=== PATIENT | male | born 1960 | race African-American/Black ===

== ENCOUNTER 2017-09-15 03:59 | Inpatient (IN) | payer SELFPAY ==
[~2017-09-15] VITALS: Ht 185.4 cm; Wt 69.9 kg
[2017-09-15] VITALS (24 sets, daily range): BP systolic 140–207; BP diastolic 68–107; PULSE 73–150; RESP 16–24; TEMP 99.2–99.9; O2SAT 97–100
[2017-09-15] MEDS ORDERED: LORazepam 2 MG/ML VIAL ONE (04:13)
[2017-09-15] MEDS ORDERED: ETOMIDATE 40 MG/20 ML VIAL ONE (04:13)
[2017-09-15] MEDS ORDERED: PROPOFOL 1000 MG/100 ML INJ 100 ML ONE (04:22)
[2017-09-15] MEDS ORDERED: SODIUM CHLORIDE 0.9% FLUSH 10 ML FLUSH IVF PRN (04:30)
[2017-09-15] MEDS ORDERED: SODIUM CHLOR 0.9% 1000 ML INJ 1,000 ML IV ONE (04:30)
[2017-09-15] MEDS ORDERED: PROPOFOL 1000 MG/100 ML INJ 100 ML IV PRN ×2 (04:30→06:15)
[2017-09-15] MEDS ORDERED: MIDAZOLAM HCL 5 MG/ML VIAL (1 ML) ONE (04:33)
[2017-09-15] MEDS ORDERED: fentaNYL DRIP 250 ML ONE (04:44)
[2017-09-15] MEDS ORDERED: fentaNYL DRIP 250 ML IV PRN ×2 (04:45→06:15)
[2017-09-15] MEDS ORDERED: MIDAZOLAM HCL 5 MG/5 ML VIAL IV PUSH ONE (04:45)
[2017-09-15] MEDS ORDERED: ROCURONIUM INJ 50 MG/5 ML VIAL IV ONE (04:45)
--- NOTE | 2017-09-15 04:49 | PD ---
HPI Chief Complaint: seizure Time Seen by Provider: 04:09 Travel History International Travel<30 days: No Contact w/Intl Traveler<30days: No (travel history is unable to be obtained) History of Present Illness HPI The patient is a 51 something appearing male who presents to the [facility] emergency department with a history of seizure activity that began sometime prior to arrival. The patient was noted to have 5 seizures that were generalized clonic tonic according to ambulance services. The patient was with a female when this occurred. She reports that he does have a remote history of seizure activity. The patient on arrival is nonverbal. The patient has a GCS of 7. The patient's O2 saturation on room air on ambulance services arrival was in the low 90s. The patient is placed on a nonrebreather mask. Due to recurrent seizure activity the patient had IV access obtained by ambulance services was given Ativan 2 mg IV. The patient was noted to have a blood sugar of 99. The patient was agitated on arrival with sinus tachycardia rate of 150s. The patient was hypertensive with a systolic blood pressure initially on arrival of 170. The patient is noted to have an abrasion to the left cheek. No other review of systems is able to be obtained from the patient has the patient is nonverbal on arrival. The patient is moving all extremities equally with 5 over 5 strength in a nonpurposeful way. PFSH Past Medical History Narrative Medical The patient's past medical history is significant for reported history of seizure disorder. Past Surgical History Narrative Surgical The patient's surgical history is unable to be obtained. Social History Narrative Social History The patient's social history is unable to be obtained. Alcohol Use: No Tobacco Use: No Substance Use: No Allergies-Medications (Allergen,Severity, Reaction): Coded Allergies: No Known Allergies (Unverified , 09/15/17) Narrative Medication The patient's current medications are unable to be obtained. Review of Systems ROS Limitations: Clinical Condition, Altered Mental Status, Unresponsive, Poor Historian Neurologic: Positive: Change in Mentation, Seizures Physical Exam Narrative General: The patient is a well-developed well-nourished male, agitated on arrival, thrashing about the bed. Head and Neck exam: Head is normocephalic atraumatic. Eyes: The patient is uncooperative for formal extraocular motion testing. Pupils are equal round and reactive to light. Nose: Midline septum with pink mucous membranes Mouth: The patient has poor dentition throughout his mouth with multiple missing teeth. Moist mucus membranes. Posterior oropharynx is not erythematous. No tonsillar hypertrophy. Uvula midline. Airway patent. The patient is noted to have a contusion to the left side of his tongue. Neck: No palpable lymphadenopathy. No nuchal rigidity. No thyromegaly. Cardiovascular: Regular sounding tachycardia in the 150s without murmurs, gallops, or rubs. No pulse deficit to the extremities on simultaneous auscultation and palpation of his radial artery. Lungs: Clear to auscultation bilaterally. No wheezes, rhonchi, or rales. Abdomen: Soft, without tenderness to palpation in all 4 quadrants of the abdomen. No guarding, rebound, or rigidity. Normal bowel sounds are audible. Extremities: No clubbing, cyanosis, or edema. 2+ pulses in all 4 extremities. Back: No costovertebral angle tenderness to palpation. Neurologic Exam: The patient does not open his eyes to verbal or painful stimulation. The patient has nonpurposeful movements of his upper and lower extremities of 5 over 5 strength. The patient is nonverbal. GCS is 7. Skin Exam: No rash noted. Intact skin that is warm and dry. Data Data Last Documented VS Vital Signs Date Time Temp Pulse Resp B/P (MAP) Pulse Ox O2 Delivery O2 Flow Rate FiO2 09/15/17 05:30 118 16 150/87 (108) 100 Ventilator 60 09/15/17 04:05 99.9 Orders Orders Lorazepam Inj (Ativan Inj) (09/15/17 04:13) Etomidate Inj (Amidate Inj) (09/15/17 04:13) Propofol 1000 Mg/100 Ml Inj (Diprivan 10 (09/15/17 04:22) Electrocardiogram (09/15/17 04:25) Complete Blood Count With Diff (09/15/17 04:25) Comprehensive Metabolic Panel (09/15/17 04:25) Creatine Kinase (Cpk) (09/15/17 04:25) Ckmb (Isoenzyme) Profile (09/15/17 04:25) Troponin I (09/15/17 04:25) B-Type Natriuretic Peptide (09/15/17 04:25) Prothrombin Time / Inr (Pt) (09/15/17 04:25) Act Partial Throm Time (Ptt) (09/15/17 04:25) Lipase (09/15/17 04:25) Urinalysis - C+S If Indicated (09/15/17 04:25) Magnesium (Mg) (09/15/17 04:25) Thyroid Stimulating Hormone (09/15/17 04:25) Chest, Single Ap (09/15/17 04:25) Ct Brain W/O Iv Contrast(Rout) (09/15/17 04:25) Iv Access Insert/Monitor (09/15/17 04:25) Ecg Monitoring (09/15/17 04:25) Oximetry (09/15/17 04:25) Blood Glucose (09/15/17 04:) Urinary Catheter Insert/Apply (09/15/17 04:25) Isis-Gastric Tube Insert/Mon (09/15/17 04:25) Drug Screen, Random Urine (09/15/17 04:25) Alcohol (Ethanol) (09/15/17 04:25) Salicylates (Aspirin) (09/15/17 04:25) Tylenol (Acetaminophen) (09/15/17 04:25) Sodium Chlor 0.9% 1000 Ml Inj (Ns 1000 M (09/15/17 04:30) Ct Cerv Spine W/O Contrast (09/15/17 04:25) Ct Facial Bones W/O Iv Cont (09/15/17 04:25) Carbamazepine (Tegretol) (09/15/17 04:25) Valproic Acid (Depakene) (09/15/17 04:25) Phenytoin (Dilantin) (09/15/17 04:25) Phenobarbital (09/15/17 04:25) Arterial Blood Gas (Abg) (09/15/17 04:25) Sodium Chloride 0.9% Flush (Ns Flush) (09/15/17 04:30) Restraints Non-Violent ZUNILDA.Q3H (09/15/17 04:25) Propofol 1000 Mg/100 Ml Inj (Diprivan 10 (09/15/17 04:30) ^ Infusion (09/15/17 04:25) RASS (09/15/17 04:25) Neurological Rass Scale ZUNILDA.Q2H (09/15/17 04:25) Midazolam Inj (Versed Inj) (09/15/17 04:33) Midazolam Inj (Versed Inj) (09/15/17 04:45) Neurological Rass Scale Q30MX2,Q2HX4,Q4H (09/15/17 04:43) Fentanyl Inj (Fentanyl Inj) (09/15/17 04:45) Fentanyl Drip (Fentanyl Drip) (09/15/17 04:45) Rocuronium Inj (Zemuron Inj) (09/15/17 04:45) Fentanyl Drip (Fentanyl Drip) (09/15/17 04:44) Levetiracetam Inj (Keppra Inj) (09/15/17 05:00) CKMB (09/15/17 04:33) CKMB% (09/15/17 04:33) Admit Order (Ed Use Only) (09/15/17 05:49) Labs Laboratory Tests Test 09/15/17 04:33 09/15/17 05:29 White Blood Count 12.4 TH/MM3 Red Blood Count 3.84 MIL/MM3 Hemoglobin 12.4 GM/DL Hematocrit 38.4 % Mean Corpuscular Volume 100.1 FL Mean Corpuscular Hemoglobin 32.3 PG Mean Corpuscular Hemoglobin Concent 32.3 % Red Cell Distribution Width 13.6 % Platelet Count 67 TH/MM3 Mean Platelet Volume 9.6 FL Neutrophils (%) (Auto) 79.3 % Lymphocytes (%) (Auto) 9.9 % Monocytes (%) (Auto) 9.5 % Eosinophils (%) (Auto) 0.8 % Basophils (%) (Auto) 0.5 % Neutrophils # (Auto) 9.8 TH/MM3 Lymphocytes # (Auto) 1.2 TH/MM3 Monocytes # (Auto) 1.2 TH/MM3 Eosinophils # (Auto) 0.1 TH/MM3 Basophils # (Auto) 0.1 TH/MM3 CBC Comment AUTO DIFF Differential Comment AUTO DIFF CONFIRMED Platelet Estimate LOW Platelet Morphology Comment ENLARGED Prothrombin Time 11.2 SEC Prothromb Time International Ratio 1.1 RATIO Activated Partial Thromboplast Time 23.1 SEC Urine Color LIGHT-YELLOW Urine Turbidity HAZY Urine pH 5.5 Urine Specific Tippo 1.009 Urine Protein 30 mg/dL Urine Glucose (UA) NEG mg/dL Urine Ketones NEG mg/dL Urine Occult Blood MOD Urine Nitrite NEG Urine Bilirubin NEG Urine Urobilinogen LESS THAN 2.0 MG/DL Urine Leukocyte Esterase NEG Urine RBC LESS THAN 1 /hpf Urine Amorphous Sediment RARE Urine Bacteria OCC /hpf Urine Hyaline Casts 13 /lpf Urine Granular Casts 180 /lpf Urine Mucus FEW /lpf Microscopic Urinalysis Comment CULT NOT INDICATED Blood Urea Nitrogen 13 MG/DL Creatinine 1.72 MG/DL Random Glucose 149 MG/DL Total Protein 9.5 GM/DL Albumin 3.9 GM/DL Calcium Level 8.5 MG/DL Magnesium Level LESS THAN 0.3 MG/DL Alkaline Phosphatase 124 U/L Aspartate Amino Transf (AST/SGOT) 102 U/L Alanine Aminotransferase (ALT/SGPT) 8 U/L Total Bilirubin 0.4 MG/DL Sodium Level 137 MEQ/L Potassium Level 3.6 MEQ/L Chloride Level 101 MEQ/L Carbon Dioxide Level 12.0 MEQ/L Anion Gap 24 MEQ/L Estimat Glomerular Filtration Rate 34 ML/MIN Phosphorus Level 5.4 MG/DL Gamma Glutamyl Transpeptidase 375 U/L Total Creatine Kinase 1135 U/L Creatine Kinase MB 8.2 NG/ML Creatine Kinase MB % 0.7 % Troponin I LESS THAN 0.02 NG/ML B-Type Natriuretic Peptide 36 PG/ML Lipase 253 U/L Thyroid Stimulating Hormone 3rd Gen 2.430 uIU/ML Salicylates Level 2.0 MG/DL Urine Opiates Screen NEG Acetaminophen Level LESS THAN 2.0 MCG/ML Urine Barbiturates Screen NEG Phenytoin (Dilantin) Level LESS THAN 0.4 MCG/ML Valproic Acid (Depakene) Level LESS THAN 3 MCG/ML Carbamazepine (Tegretol) Level LESS THAN 0.5 MCG/ML Urine Amphetamines Screen NEG Phenobarbital Level LESS THAN 2.1 MCG/ML Urine Benzodiazepines Screen NEG Urine Cocaine Screen NEG Urine Cannabinoids Screen NEG Ethyl Alcohol Level 4 MG/DL Blood Gas Puncture Site RT RADIAL Blood Gas Patient Temperature 98.6 Blood Gas HCO3 20 mmol/L Blood Gas Base Excess -4.9 mmol/L Blood Gas Oxygen Saturation 98 % Arterial Blood pH 7.31 Arterial Blood Partial Pressure CO2 41 mmHg Arterial Blood Partial Pressure O2 252 mmHG Arterial Blood Oxygen Content 17.5 Vol % Arterial Blood Carboxyhemoglobin 0.7 % Arterial Blood Methemoglobin 0.7 % Blood Gas Hemoglobin 12.3 G/DL Oxygen Delivery Device VENTILATOR Blood Gas Ventilator Setting AC/16/600/PEEP5 Blood Gas Inspired Oxygen 100 % MDM Medical Decision Making Medical Screen Exam Complete: Yes Emergency Medical Condition: Yes Medical Record Reviewed: Yes Interpretation(s) Last Impressions Maxillofacial CT 09/15/17424 Signed Impressions: Service Date/Time: Friday, September 15, 2017 04:57 - CONCLUSION: No facial bone fractures seen. Michel Salas MD Head CT 09/15/17424 Signed Impressions: Service Date/Time: Friday, September 15, 2017 04:57 - CONCLUSION: 1. No acute findings in the brain. 2. 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 Michel Salas MD Chest X-Ray 09/15/17424 Signed Impressions: Service Date/Time: Friday, September 15, 2017 04:49 - CONCLUSION: ET tube in good position. Michel Salas MD Cervical Spine CT 09/15/17424 Signed Impressions: Service Date/Time: Friday, September 15, 2017 04:57 - CONCLUSION: No evidence of compression fracture. Mild retrolisthesis at C4-5 with associated moderate severity discogenic degenerative changes C4-C7. Michel Salas MD Differential Diagnosis Intracranial hemorrhage, versus status epilepticus, versus delirium tremens, versus encephalopathy Narrative Course During the course of the patients emergency department visit, the patient was placed on a awake overnight monitor with oximetry and frequent blood pressure monitoring. The patient had IV access obtained and blood work sent for analysis. An EKG was done that shows a sinus tachycardia rate of 121 post intubation, voltage criteria for LVH met, QRS duration is 89 ms, QTC 378 ms. The patient was initially provided an additional 2 mg of Ativan IV, however the patient continued to be agitated. The patient was prepped for RSI. The patient was intubated by me with an 8 size endotracheal tube. The patient was placed on propofol for sedation. In spite of maxing out his propofol for sedation the patient continued to be agitated. The patient was given Versed 2.5 mg IV. The patient continued to be agitated and was given fentanyl 50 g IV followed by a fentanyl drip. The patient was given Rocuronium 50 mg IV. Due to my concern for status epilepticus, the patient was loaded with Keppra 1 g IV. The patients laboratory studies were reviewed and remarkable for a white count of 12.4, hemoglobin 12.4, platelets 67 with 79.3 neutrophils, monocytes 9.5. CMP is remarkable for CO2 of 12, anion gap 24, creatinine 1.72, glucose 149, magnesium less than 0.3, AST 102, ALT 8, alkaline phosphatase 124, CPK 1135, MB percent 0.7 consistent with rhabdomyolysis, troponin I less than 0.02, lipase 253, TSH 2.43, BNP 36, PT 11.2, PTT 23.1. Antiepileptic levels were undetectable, alcohol 4, urine drug screen was negative, salicylate to, acetaminophen less than 2. Urinalysis showed moderate occult blood, however less than 1 RBC consistent with rhabdomyolysis Radiology studies were reviewed and remarkable for a CT scan of the brain that showed no acute findings. Prior aneurysm clip right supraclinoid region with surrounding encephalomalacia. CT scan of the facial bones showed no acute abnormality. CT scan of the C-spine showed degenerative changes, no other acute abnormality. Chest x-ray showed no acute cardiopulmonary disease, endotracheal tube in good position. The patients results were discussed with the patient, including the plan of care. I explained that further testing and/ or monitoring is indicated based on the patients history, examination, and/ or laboratory findings. Therefore, I recommended admission for additional evaluation. The patient expressed understanding and was agreeable with this plan. The patient was admitted to the hospital in guarded condition and sent to a bed under the care of the hand box folder service. Critical Care Narrative Aggregate critical care time was 37 minutes. Time to perform other separately billable procedures was not included in the critical care time. My time did not include minutes spent treating any other patients simultaneously or on activities that did not directly contribute to the patient's treatment. The services I provided to this patient were to treat and/or prevent clinically significant deterioration that could result in: Hypoxic brain injury, versus respiratory failure, versus cardiovascular collapse, versus progressive brain injury related to status epilepticus I provided critical care services requiring my management, as noted below: Chart data review, documentation time, medication orders and management, vital sign assessments/reviewing monitor data, ordering and reviewing lab tests, ordering and interpreting/reviewing x-rays and diagnostic studies, care of the patient and discussion of the patient with the admitting physicians. Procedures Procedure Narrative The patient was put in optimal position for the procedure. Rapid sequence intubation was initiated by me using 20 milligrams of etomidate IV and 100 milligrams of succinylcholine IV. The patient was intubated with a 8 cuffed endotracheal tube. Tube placement was confirmed by visualization of the tube and balloon passing through the cords, capnometry and subsequent chest x-ray. Breath sounds were equal and well aerated bilaterally postintubation. No breath sounds over stomach. Patient tolerated procedure well. Physician Communication Physician Communication The patient's case including history, pertinent physical examination findings, and laboratory studies were discussed with Dr. Adame, and then Dr. Garza. It was agreed that the patient would be admitted to the hand box folder's service. Diagnosis Primary Impression: Status epilepticus Additional Impression: Altered mental status Qualified Codes: R41.0 - Disorientation, unspecified Admitting Information Admitting Physician Requests: Admit Daphne Lechuga MD Sep 15, 2017 04:49
[2017-09-15 05:00] LABS: AUTOMATED NEUTROPHIL # 9.8 TH/MM3 (1.8-7.7); BASOPHIL # 0.1 TH/MM3 (0-0.2); BASOPHIL % 0.5 % (0.0-2.0); EOSINOPHIL # 0.1 TH/MM3 (0-0.4); EOSINOPHIL % 0.8 % (0.0-4.0); HEMATOCRIT 38.4 % (39.0-51.0); LYMPH % 9.9 % (9.0-44.0); LYMPHOCYTE # 1.2 TH/MM3 (1.0-4.8); MEAN CELL VOLUME 100.1 FL (80.0-100.0); MEAN CORPUSCULAR HEMOGLOBIN 32.3 PG (27.0-34.0); MEAN CORPUSCULAR HGB CONC 32.3 % (32.0-36.0); MONO % 9.5 % (0.0-8.0); NEUT % 79.3 % (16.0-70.0); PLATELET COUNT 67 TH/MM3 (150-450); RED BLOOD COUNT 3.84 MIL/MM3 (4.50-5.90); RED CELL DISTRIBUTION WIDTH 13.6 % (11.6-17.2); WHITE BLOOD COUNT 12.4 TH/MM3 (4.0-11.0)
[2017-09-15] MEDS ORDERED: levETIRAcetam INJ 100 ML IV ONE (05:00)
--- NOTE | 2017-09-15 05:02 | RADRPT ---
EXAM DATE/TIME: 09/15/2017 04:49 [facility] COMPARISON: No previous studies available for comparison. INDICATIONS : Post intubation. MEDICAL HISTORY : None. SURGICAL HISTORY : None. ENCOUNTER: Initial ACUITY: 1 day PAIN SCORE: 0/10 LOCATION: Bilateral chest FINDINGS: Endotracheal tube tip well above the renato. Gastric tube tip and side-port project within the stoma ch. The lungs are symmetrically aerated and clear. The heart is normal size. CONCLUSION: ET tube in good position. Michel Salas MD on September 15, 2017 at 5:00 Board Certified Radiologist. This report was verified electronically.
[2017-09-15 05:05] LABS: HEMO FLAGS AUTO DIFF
[2017-09-15 05:06] LABS: BACTERIA, URINE OCC /hpf; BLOOD, URINE MOD (NEG); COMMENT (UR) CULT NOT INDICATED; CULTURE IF INDICATED CULT NOT INDICATED; GLUCOSE,URINE NEG (NEG); GRANULAR CAST, URINE 180 /lpf; HYALINE CAST, URINE 13 /lpf (RARE); KETONE, URINE NEG (NEG); MUCUS URINE FEW /lpf (OCC); NITRITE,URINE NEG (NEG); PH, URINE 5.5 (5.0-8.5); URINE COLOR LIGHT-YELLOW (YELLW/STRAW)
[2017-09-15 05:10] LABS: ANION GAP 24 MEQ/L (5-15); AST (GOT) 102 U/L (15-37); BLOOD UREA NITROGEN 13 MG/DL (7-18); CHLORIDE 101 MEQ/L (98-107); GLOMERULAR FILTRATION RATE 34 ML/MIN (>89); MAGNESIUM LESS THAN 0.3 MG/DL (1.5-2.5); POTASSIUM 3.6 MEQ/L (3.5-5.1); SODIUM (NA) 137 MEQ/L (136-145)
[2017-09-15 05:11] LABS: APTT (PATIENT) 23.1 SEC (24.3-30.1); INTERNATIONAL NORMALIZED RATIO 1.1 RATIO; PROTHROMBIN TIME - PATIENT 11.2 SEC (9.8-11.6)
--- NOTE | 2017-09-15 05:17 | RADRPT ---
EXAM DATE/TIME: 09/15/2017 04:57 [facility] COMPARISON: No previous studies available for comparison. INDICATIONS : Trauma; seizure. RADIATION DOSE: 37.65 CTDIvol (mGy) MEDICAL HISTORY : Non-responsive. SURGICAL HISTORY : Non-responsive. ENCOUNTER: Initial ACUITY: 1 day PAIN SCALE: Non-responsive LOCATION: cranial TECHNIQUE: Multiple contiguous axial images were obtained of the head. Using automated exposure control and adj ustment of the mA and/or kV according to patient size, radiation dose was kept as low as reasonably a chievable to obtain optimal diagnostic quality images. DICOM format image data is available electro nically for review and comparison. FINDINGS: CEREBRUM: Right supraclinoid aneurysm clip causes streak artifact in the adjacent region. There is decreased a ttenuation in the right frontal orbital region.. The ventricles are symmetric. No midline shift or evidence of acute blood products. No extra-axial fluid collections. POSTERIOR FOSSA: The cerebellum and brainstem are intact. The 4th ventricle is midline. The cerebellopontine angle i s unremarkable. EXTRACRANIAL: The visualized portion of the orbits is intact. SKULL: The calvaria is intact. No evidence of skull fracture. CONCLUSION: 1. No acute findings in the brain. 2. 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 Michel Salas MD on September 15, 2017 at 5:10 Board Certified Radiologist. This report was verified electronically.
--- NOTE | 2017-09-15 05:19 | RADRPT ---
EXAM DATE/TIME: 09/15/2017 04:57 [facility] COMPARISON: No previous studies available for comparison. INDICATIONS : Trauma; seizure. RADIATION DOSE: 45.49 CTDIvol (mGy) MEDICAL HISTORY : Non-responsive. SURGICAL HISTORY : Non-responsive. ENCOUNTER: Initial ACUITY: 1 day PAIN SCORE: Non-responsive LOCATION: Bilateral facial TECHNIQUE: Volumetric scanning of the facial bones was performed. Using automated exposure control and adjustme nt of the mA and/or kV according to patient size, radiation dose was kept as low as reasonably achiev able to obtain optimal diagnostic quality images. DICOM format image data is available electronicall y for review and comparison. FINDINGS: The frontal, maxillary, mandible, zygomatic arch, nasal bone, and orbital structures are intact. No fracture seen. Aneurysm clip in the right supraclinoid region. Bony orbits is grossly intact. Ther e is opacification of anterior and mid ethmoid air cells and non-aerated without fluid tracks in both maxillary sinuses. Focal mucosal thickening in the inferior right maxillary sinus the 7 mm. CONCLUSION: No facial bone fractures seen. Michel Salas MD on September 15, 2017 at 5:16 Board Certified Radiologist. This report was verified electronically.
[2017-09-15 05:21] LABS: ALCOHOL 4 MG/DL (0-5)
--- NOTE | 2017-09-15 05:21 | RADRPT ---
EXAM DATE/TIME: 09/15/2017 04:57 [facility] COMPARISON: No previous studies available for comparison. INDICATIONS : Trauma; seizure. RADIATION DOSE: 21.47 CTDIvol (mGy) MEDICAL HISTORY : Non-responsive. SURGICAL HISTORY : Non-responsive. ENCOUNTER: Initial ACUITY: 1 day PAIN SCALE: Non-responsive LOCATION: Bilateral neck TECHNIQUE: Volumetric scanning of the cervical spine was performed. Multiplanar reconstructions in the sagittal, coronal and oblique axial planes were performed. Using automated exposure control and adjustment o f the mA and/or kV according to patient size, radiation dose was kept as low as reasonably achievable to obtain optimal diagnostic quality images. DICOM format image data is available electronically f or review and comparison. FINDINGS: VERTEBRAE: There is straightening of the upper cervical lordosis. Minimal retrolisthesis of C4 with respect to C5. Associated discogenic degenerative changes with anterior and posterior osteophytes at C4-5 and C 6-7 and non-bridging anterior paravertebral ossification at C5-6. The posterior elements are in norm al alignment without evidence of locked or perched facets. The atlantoaxial articulation and spinous processes are intact. C2-C3: No fracture seen. The bony neural foramina are patent. C3-C4: No fracture seen. The bony neural foramina are patent. C4-C5: No fracture seen. Moderate left-sided bony foraminal stenosis. C5-C6: No fracture seen. The bony neural foramina are patent. C6-C7: No fracture seen. The bony neural foramina are patent. C7-T1: No fracture seen. The bony neural foramina are patent. CONCLUSION: No evidence of compression fracture. Mild retrolisthesis at C4-5 with associated moderate severity d iscogenic degenerative changes C4-C7. Michel Salas MD on September 15, 2017 at 5:17 Board Certified Radiologist. This report was verified electronically.
[2017-09-15 05:24] LABS: ALKALINE PHOSPHATASE 124 U/L (45-117); ALT (GPT) 8 U/L (12-78); CREATINE KINASE 1135 U/L (39-308); PHENOBARBITAL LESS THAN 2.1 MCG/ML (15.0-40.0); TOTAL BILIRUBIN ADULT 0.4 MG/DL (0.2-1.0)
[2017-09-15 05:25] LABS: ACETAMINOPHEN LESS THAN 2.0 MCG/ML (10.0-30.0)
[2017-09-15 05:29] LABS: PLATELET ESTIMATE SMEAR LOW (NORMAL); PLATELET MORPHOLOGY ENLARGED (NORMAL); SCAN/DIFF AUTO DIFF CONFIRMED
[2017-09-15 05:37] LABS: CKMB 8.2 NG/ML (0.5-3.6)
[2017-09-15 05:46] LABS: BLOOD GAS BASE EXCESS -4.9 mmol/L (-2-2); BLOOD GAS CARBOXYHEMOGLOBIN 0.7 % (0-4); BLOOD GAS HCO3 20 mmol/L (22-26); BLOOD GAS METHEMOGLOBIN 0.7 % (0-2); BLOOD GAS O2 HGB SATURATION 98 % (90-100); BLOOD GAS OXYGEN CONTENT 17.5 Vol % (12.0-20.0); BLOOD GAS PCO2 41 mmHg (38-42); BLOOD GAS PO2 252 mmHG (61-120); BLOOD GAS TOTAL HGB 12.3 G/DL (12.0-16.0); CRITICAL VALUE NO; FIO2 100 %; OXYGEN DEVICE VENTILATOR; TEMP CORR TO 98.6; VENT SETTINGS AC/16/600/PEEP5
[2017-09-15 05:47] LABS: DRAW SITE RT RADIAL; NUMBER OF ARTERIAL PUNCTURES 1; STAT YES; ULNAR PULSE PRESENT
[2017-09-15] MEDS ORDERED: LABETALOL HCL 100 MG/20 ML VIAL IV PUSH PRN (06:15)
[2017-09-15] MEDS ORDERED: ONDANSETRON HCL 4 MG/2 ML VIAL IV PUSH PRN (06:15)
[2017-09-15] MEDS ORDERED: MISCELLANEOUS NURSING INFORMATION XX SCH (06:15)
[2017-09-15] MEDS ORDERED: MAGNESIUM HYDROXIDE SUSP 30 ML CUP PO PRN (06:15)
[2017-09-15] MEDS ORDERED: POTASSIUM CHLOR 40 MEQ PREMIX 100 ML IV PRN ×2 (06:15)
[2017-09-15] MEDS ORDERED: DEXTROSE 50% IN WATER 50 ML VIAL(D50) IV PUSH PRN (06:15)
[2017-09-15] MEDS ORDERED: MAGNESIUM SULFATE INJ 4 GM in SODIUM CHLORIDE 0.9% INJ 92 ML IV PRN (06:15)
[2017-09-15] MEDS ORDERED: POTASSIUM PHOSPHATE MONOBASIC 500 MG TAB PO/TUBE PRN (06:15)
[2017-09-15] MEDS ORDERED: CHLORHEXIDINE GLUCONATE 2 % 1 PACK (2 CLOTHS) TOP PRN (06:15)
[2017-09-15] MEDS ORDERED: hydrALAZINE HCL 20 MG/ML VIAL IV PUSH PRN (06:15)
[2017-09-15] MEDS ORDERED: SODIUM PHOSPHATE INJ 30 MMOL in SODIUM CHLOR 0.9% 250 ML INJ 240 ML IV PRN (06:15)
[2017-09-15] MEDS ORDERED: RESP: ALBUTEROL 2.5 MG/IPRATROPIUM 0.5 MG NEB (PRN) INH (06:15)
[2017-09-15] MEDS ORDERED: SUCCINYLCHOLINE CHLORIDE 100 MG/5 ML SYRINGE IV PUSH ONE (06:15)
[2017-09-15] MEDS ORDERED: MAGNESIUM SULFATE 4 GM PREMIX 150 ML IV ONE (06:15)
[2017-09-15] MEDS ORDERED: MAGNESIUM SULFATE INJ 2 GM in SODIUM CHLORIDE 0.9% INJ 96 ML IV PRN (06:15)
[2017-09-15] MEDS ORDERED: MULTIVITAMIN INJ 10 ML, THIAMINE INJ 100 MG, FOLIC ACID INJ 1 MG in SODIUM CHLOR 0.45% ... IV ONE (06:15)
[2017-09-15] MEDS ORDERED: POTASSIUM PHOSPHATE INJ 30 MMOL in SODIUM CHLOR 0.9% 250 ML INJ 250 ML IV PRN (06:15)
[2017-09-15] MEDS ORDERED: POTASSIUM PHOSPHATE MONOBASIC 500 MG TAB PO PRN (06:15)
[2017-09-15] MEDS ORDERED: POTASSIUM CHLOR 20 MEQ PREMIX 100 ML IV PRN ×2 (06:15)
[2017-09-15] MEDS ORDERED: MAGNESIUM OXIDE 400 MG TAB PO PRN (06:15)
--- NOTE | 2017-09-15 06:36 | HHI.HP ---
HPI Service Critical Care Medicine Primary Care Physician Unknown Admission Diagnosis Status epilepticus, rhabdomyolysis Diagnosis: Chief Complaint: status epilepticus Travel History International Travel<30 Days: No Contact w/Intl Traveler <30 Da: No Traveled to Known Affected Are: No History of Present Illness This is a middle-aged appearing male who presents to [facility] by EMS for recurrent seizure like activity. per EMS report, he was with a female who stated he may have a ?history of seizures? He had 5 witnessed seizure-like episodes which appeared tonic-clonic in nature. On arrival to the ED, he was hypoxic and not protecting his airway on a non-rebreather mask. He was intubated in the ER. He was given ativan IV and 1gm keppra iv. CT brain was without evidence of acute changes. Patient was initially tachycardic and hypertensive. laboratory data is significant for thrombocytopenia to 67k, bicarb 12, Cr 1.7, CK 1135, AST/ALT 102/8, and an undetectable serum magnesium level. The patient is intubated, and no additional information is available from him. Review of Systems ROS Limitations: Clinical Condition, Intubated, Altered Mental Status, Unresponsive Past Family Social History Allergies: Coded Allergies: No Known Allergies (Unverified , 09/15/17) Past Medical History unknown and unobtainable secondary to the clinical condition of the patient. per bystander report, the patient may have a history of prior seizures. Past Surgical History unknown and unobtainable secondary to the clinical condition of the patient. Reported Medications unknown and unobtainable secondary to the clinical condition of the patient. Active Ordered Medications See MAR Family History unknown and unobtainable secondary to the clinical condition of the patient. Social History unknown and unobtainable secondary to the clinical condition of the patient. Physical Exam Vital Signs Vital Signs Date Time Temp Pulse Resp B/P (MAP) Pulse Ox O2 Delivery O2 Flow Rate FiO2 09/15/17 04:50 100 100 09/15/17 04:30 100 100 09/15/17 04:05 99.9 150 24 170/78 (108) Physical Exam GENERAL: Middle-aged appearing male, lying in bed, intubated, sedated HEENT: Normocephalic. Atraumatic. Pupils are 2 mm bilaterally, equal and round. They're disconjugate at this time. Mucous membranes are moist NECK: Trachea is midline. There is no JVD. CHEST: Equal chest rise. PRVC. 60% FiO2. PEEP of 5. SPO2 96% CARDIOVASCULAR: Tachycardic rate, regular rhythm. Appears sinus on the monitor. Hypertensive in the 140s systolic ABDOMEN: Soft, nontender, nondistended. No guarding. No hepatomegaly. MUSCULOSKELETAL: Pulses 2+. No peripheral edema. NEUROLOGICAL: RASS -4. Moves all extremities. Weakly withdrawals to pain in all 4 extremities. Does not follow commands. Pupils as above. Has a cough. Laboratory Laboratory Tests Test 09/15/17 04:33 09/15/17 05:29 White Blood Count 12.4 Red Blood Count 3.84 Hemoglobin 12.4 Hematocrit 38.4 Mean Corpuscular Volume 100.1 Mean Corpuscular Hemoglobin 32.3 Mean Corpuscular Hemoglobin Concent 32.3 Red Cell Distribution Width 13.6 Platelet Count 67 Mean Platelet Volume 9.6 Neutrophils (%) (Auto) 79.3 Lymphocytes (%) (Auto) 9.9 Monocytes (%) (Auto) 9.5 Eosinophils (%) (Auto) 0.8 Basophils (%) (Auto) 0.5 Neutrophils # (Auto) 9.8 Lymphocytes # (Auto) 1.2 Monocytes # (Auto) 1.2 Eosinophils # (Auto) 0.1 Basophils # (Auto) 0.1 CBC Comment AUTO DIFF Differential Comment AUTO DIFF CONFIRMED Platelet Estimate LOW Platelet Morphology Comment ENLARGED Prothrombin Time 11.2 Prothromb Time International Ratio 1.1 Activated Partial Thromboplast Time 23.1 Urine Color LIGHT-YELLOW Urine Turbidity HAZY Urine pH 5.5 Urine Specific Kenner 1.009 Urine Protein 30 Urine Glucose (UA) NEG Urine Ketones NEG Urine Occult Blood MOD Urine Nitrite NEG Urine Bilirubin NEG Urine Urobilinogen LESS THAN 2.0 Urine Leukocyte Esterase NEG Urine RBC LESS THAN 1 Urine Amorphous Sediment RARE Urine Bacteria OCC Urine Hyaline Casts 13 Urine Granular Casts 180 Urine Mucus FEW Microscopic Urinalysis Comment CULT NOT INDICATED Blood Urea Nitrogen 13 Creatinine 1.72 Random Glucose 149 Total Protein 9.5 Albumin 3.9 Calcium Level 8.5 Magnesium Level LESS THAN 0.3 Alkaline Phosphatase 124 Aspartate Amino Transf (AST/SGOT) 102 Alanine Aminotransferase (ALT/SGPT) 8 Total Bilirubin 0.4 Sodium Level 137 Potassium Level 3.6 Chloride Level 101 Carbon Dioxide Level 12.0 Anion Gap 24 Estimat Glomerular Filtration Rate 34 Total Creatine Kinase 1135 Creatine Kinase MB 8.2 Creatine Kinase MB % 0.7 Troponin I LESS THAN 0.02 B-Type Natriuretic Peptide 36 Lipase 253 Thyroid Stimulating Hormone 3rd Gen 2.430 Salicylates Level 2.0 Acetaminophen Level LESS THAN 2.0 Phenytoin (Dilantin) Level LESS THAN 0.4 Valproic Acid (Depakene) Level LESS THAN 3 Carbamazepine (Tegretol) Level LESS THAN 0.5 Phenobarbital Level LESS THAN 2.1 Ethyl Alcohol Level 4 Blood Gas Puncture Site RT RADIAL Blood Gas Patient Temperature 98.6 Blood Gas HCO3 20 Blood Gas Base Excess -4.9 Blood Gas Oxygen Saturation 98 Arterial Blood pH 7.31 Arterial Blood Partial Pressure CO2 41 Arterial Blood Partial Pressure O2 252 Arterial Blood Oxygen Content 17.5 Arterial Blood Carboxyhemoglobin 0.7 Arterial Blood Methemoglobin 0.7 Blood Gas Hemoglobin 12.3 Oxygen Delivery Device VENTILATOR Blood Gas Ventilator Setting AC/16/600/PEEP5 Blood Gas Inspired Oxygen 100 Result Diagram: 09/15/1743209/15/17432 Imaging Last Impressions Maxillofacial CT 09/15/17424 Signed Impressions: Service Date/Time: Friday, September 15, 2017 04:57 - CONCLUSION: No facial bone fractures seen. Michel Salas MD Head CT 09/15/17424 Signed Impressions: Service Date/Time: Friday, September 15, 2017 04:57 - CONCLUSION: 1. No acute findings in the brain. 2. 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 Michel Salas MD Chest X-Ray 09/15/17424 Signed Impressions: Service Date/Time: Friday, September 15, 2017 04:49 - CONCLUSION: ET tube in good position. Michel Salas MD Cervical Spine CT 09/15/17424 Signed Impressions: Service Date/Time: Friday, September 15, 2017 04:57 - CONCLUSION: No evidence of compression fracture. Mild retrolisthesis at C4-5 with associated moderate severity discogenic degenerative changes C4-C7. Michel Salas MD Caprini VTE Risk Assessment Caprini VTE Risk Assessment: Mod/High Risk (score >= 2) Caprini Risk Assessment Model Point Value = 1 Point Value = 2 Point Value = 3 Point Value = 5 Age 41-60 Minor surgery BMI > 25 kg/m2 Swollen legs Varicose veins or History of unexplained or recurrent spontaneous Oral contraceptives or hormone replacement Sepsis (< 1 month) Serious lung disease, including pneumonia (< 1 month) Abnormal pulmonary function Acute myocardial infarction Congestive heart failure (< 1 month) History of inflammatory bowel disease Medical patient at bed rest Age 61-74 Arthroscopic surgery Major open surgery (> 45 min) Laparoscopic surgery (> 45 min) Malignancy Confined to bed (> 72 hours) Immobilizing plaster cast Central venous access Age >= 75 History of VTE Family history of VTE Factor V Leiden Prothrombin [id number] Lupus anticoagulant Anticardiolipin antibodies Elevated serum homocysteine Heparin-induced thrombocytopenia Other congenital or acquired thrombophilia Stroke (< 1 month) Elective arthroplasty Hip, pelvis, or leg fracture Acute spinal cord injury (< 1 month) Prophylaxis Regimen Total Risk Factor Score Risk Level Prophylaxis Regimen 0-1 Low Early ambulation 2 Moderate Order ONE of the following: *Sequential Compression Device (SCD) *Heparin 5000 units SQ BID 3-4 Higher Order ONE of the following medications: *Heparin 5000 units SQ TID *Enoxaparin/Lovenox 40 mg SQ daily (WT < 150 kg, CrCl > 30 mL/min) *Enoxaparin/Lovenox 30 mg SQ daily (WT < 150 kg, CrCl > 10-29 mL/min) *Enoxaparin/Lovenox 30 mg SQ BID (WT < 150 kg, CrCl > 30 mL/min) AND/OR *Sequential Compression Device (SCD) 5 or more Highest Order ONE of the following medications: *Heparin 5000 units SQ TID (Preferred with Epidurals) *Enoxaparin/Lovenox 40 mg SQ daily (WT < 150 kg, CrCl > 30 mL/min) *Enoxaparin/Lovenox 30 mg SQ daily (WT < 150 kg, CrCl > 10-29 mL/min) *Enoxaparin/Lovenox 30 mg SQ BID (WT < 150 kg, CrCl > 30 mL/min) AND *Sequential Compression Device (SCD) Assessment and Plan Assessment and Plan Assessment: This is a middle-aged male who presented in status epilepticus with an unknown history (?history of seizures). He has an undetectable magnesium level, and severe hypomagnesemia can cause seizures. In addition, he has LFTs that could represent chronic alcoholic cirrhosis, and a low etoh serum level, and alcohol withdraw seizures/delirium tremens could cause seizures as well. Further, he has undetectable levels of multiple anti-epileptics, so if he did have a seizure condition, he may have medication noncompliance. Finally, [employer] infection is less likely, though could be in the differential diagnosis. Thrombocytopenia prevents emergent LP currently. Will obtain initial information , replace magnesium, obtain EEG. If fevers persist after seizures stop, would consider empiric coverage for [employer] infections and LP may be warranted at that time. will hold pharmacologic DVT prophylaxis today in case LP is needed urgently. Remains very critically ill with life-threatening status epilepticus and hypomagnesemia. Plan by systems: Neurologic: Status Epilepticus Metabolic Encephalopathy frequent neuro checks EEG may need MRI when additional information is resulted may need LP and [employer] coverage for infections if fevers persist fentanyl and propofol for RASS goal -2 keppra 1gm iv given in ED. start 500mg iv q12h. Respiratory: Acute hypoxic and hypercarbic respiratory failure vent bundle hob at 30 degrees nebs wean fio2 for goal spo2 > 90% no weaning of mechanical ventilation until mental status improves. Cardiovascular: Hypertension likely secondary to seizures labetalol and hydralazine prn for goal sbp < 160 Renal: Acute kidney injury Rhabdomyolysis serial CK LR @ 150 cc/hr CR likely secondary to seizures and rhabdo trend on daily bmp place whitt, q1h uop -- Strict I/Os FEN/GI: Severe life-threatening hypomagnesemia Anion-gap metabolic acidosis high suspicion for poor nutrition from substance abuse send phos level now start iv thiamine iv multivitamin 4gm mgso4 STAT, then recheck potassium. would repeat 4gm iv mgso4 serially until mag level gets > 1, then target 2.5: may be total body magnesium deplete. daily bmp Jevity 1.5, goal 60. nutrition recs. acidosis likely secondary to seizures. ivf as above. Heme/ID: Thrombocytopenia unclear etiology, ?cirrhosis. no active bleeding. will not transfuse at this time. trend on daily cbc. no current infectious etiology suspected unless continues to spike fevers and [employer] infection is higher on the differential. Endocrine: Hyperglycemia of Critical Illness ssi, med scale, q6h -- SSI Prophylaxis: GI Prophylaxis pepcid iv DVT Prophylaxis -- SCDs hold pharmacologic dvt prophylaxis until no need for LP, then will start. Lines: piv's whitt Dispo: admit to ICU. very critically ill. This patient remains critically ill with one or more organ systems which are or may become a threat to life. I have spent in excess of 62 minutes discontinuously in the care and management of this patient. This time is exclusive of procedures, and includes, but is not limited to, evaluation of the patient, review of the medical record, discussions with family, consultants, nursing staff, or respiratory therapy, and documentation in the medical record. Code Status Full Code Ebenezer Garza MD Sep 15, 2017 06:36
[2017-09-15] MEDS: RESP: ALBUTEROL 2.5 MG/IPRATROPIUM 0.5 MG NEB (SCH) INH ×3 (08:10→20:23)
[2017-09-15] MEDS: LACTATED RINGER'S 1000 ML INJ 1,000 ML IV SCH ×2 (08:18→13:23)
[2017-09-15] MEDS: CHLORHEXIDINE 0.12% (ORAL KIT) 15 ML CUP MT SCH ×2 (08:19→21:00)
[2017-09-15] MEDS: levETIRAcetam INJ 500 MG in SODIUM CHLORIDE 0.9% INJ 100 ML IV SCH ×2 (08:51→20:42)
[2017-09-15] MEDS: FAMOTIDINE 20 MG/2 ML VIAL IV PUSH SCH (08:52)
[2017-09-15] MEDS: DOCUSATE SODIUM 50 MG/SENNA 8.6 MG TAB PO SCH ×2 (08:52→20:42)
[2017-09-15 10:28] LABS: CKMB 12.5 NG/ML (0.5-3.6)
[2017-09-15] MEDS: INSULIN NovoLIN REGULAR SUPPLEMENTAL SCALE SQ SCH ×3 (12:00→23:13)
--- NOTE | 2017-09-15 12:42 | EKG ---
Date Performed: 09/15/2017 Time Performed: 04:34:04 PTAGE: 89 years EKG: SINUS TACHYCARDIA VOLTAGE CRITERIA FOR LVH Nondiagnostic Q waves in the inferior and latera l leads. ABNORMAL ECG NO PREVIOUS TRACING DOCTOR: Ran Lechuga Interpretating Date/Time 09/15/2017 12:41:26
--- NOTE | 2017-09-15 17:31 | MB ---
cc: RHONDA MCCONNELL M.D. DATE OF CONSULTATION 09/15/2017 No date of HISTORY OF THE PRESENT ILLNESS This is a middle-aged man, he states he is 57 years old and he states that his last name is Chino, first name Tariq, lives in [place] who came to [facility] by EMS for recurrent seizure like activity. He was apparently with somebody, had five witnessed seizures, tonoclonic. On arrival he was hypoxic not protecting his airway on a non-rebreather. He was intubated and given Ativan as well as a gram of Keppra. CT was performed of the brain, was unremarkable. He is currently extubated on a non-rebreather, right now he is able to mumble words. He told me his name and his age and that he lives in [place]. He states he has had seizures since he was at least 12 years old. He cannot tell me what medicines he is taking. PHYSICAL EXAMINATION VITAL SIGNS: On exam his vital temperature had been normal on admission, a little elevated at 99.5. Pulse 88, respiratory rate right now is 16. His blood pressure is 145/80. He is sating at 99% on 3 liters. NEUROLOGIC: His pupils are reactive. His face is symmetrical. His speech is hypophonic but he does not sound dysarthric. Motor oliveira he moves everything. Gait is withheld. LABORATORY DATA White count 12.4, MCV 100.1, platelets 67,000. Coag panel PTT 23.1. Chemistries, AST 102, ALT 8, alk phos 124. CK 1135. Creatinine 1.72 with a GFR 34. Magnesium currently 4.2, phosphorus 5.4. CK now this morning was 2476, pending repeat. Toxicology was basically unremarkable. Ethanol level was 4. IMAGING STUDIES CT head no acute findings. Evidence of a prior aneurysm clip right supraclinoid region with surrounding encephalomalacia. IMPRESSION The patient states he is 57-year-old man that has a history of epilepsy, may be multifactorial. 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 He had a negative phenobarbital level, Tegretol level, Depakote level, Dilantin level, so it seems he is noncompliant with medication. I would recommend monitoring closely for any alcohol withdrawal. Continue thiamine, folic acid, multivitamins. Also benzodiazepines should be continued for any withdrawal from alcohol. He was started on Keppra. Will continue with the current Keppra 500 mg b.i.d. dosing. Hopefully case management can assist in making sure that he gets his medication. Continue seizure precautions. I will go ahead and order an EEG and if stable in the next 24 to 48 hours hopefully discharge planning. MD MAGDY Martinez/KK /4:30 PM /5:10 PM
--- NOTE | 2017-09-15 20:31 | MG ---
cc: MELISSA GABRIEL MD Lab No: Date: 09/15/17 Age: Sex: M Race: An EEG was obtained on this Alfie Yeager patient being evaluated for subarachnoid hemorrhage, encephalomalacia, seizures. The patient is described as intubated with poor responses to somewhat of sensory stimuli. This study is actually showing a lot of alpha rhythms that seem to be poorly reactive, perhaps more so in the central frontal head regions. There are beta rhythms diffusely and there is some theta activity bilaterally. Photic stimulation disclosed no significant change. INTERPRETATION Abnormal EEG because of poorly reactive background rhythms consisting of a lot of alpha activity. There is some generalized slowing. The findings suggest a mild diffuse disturbance of cerebral function. The alpha activity is somewhat unusual, but wonder if this is a representation of a poorly reactive/alpha coma background activity. No epileptiform, no weak ictal features present. Melissa Gabriel MD [facility] /8:10 PM /8:26 PM
[2017-09-15] MEDS: SODIUM BICARBONATE 8.4% INJ 150 MEQ in DEXTROSE 5% IN WATE 1000ML INJ 1,000 ML IV SCH ×2 (23:17)
[2017-09-15 23:47] LABS: CKMB 17.2 NG/ML (0.5-3.6)
[2017-09-16] VITALS (10 sets, daily range): BP systolic 105–171; BP diastolic 59–95; PULSE 65–87; RESP 16–20; TEMP 98.6–99.4; O2SAT 94–97
[2017-09-16] MEDS: CHLORHEXIDINE GLUCONATE 2 % 1 PACK (2 CLOTHS) TOP SCH (01:39)
[2017-09-16] MEDS: THIAMINE INJ 100 MG in SODIUM CHLORIDE 0.9% INJ 100 ML IV SCH (02:05)
[2017-09-16 04:05] LABS: AUTOMATED NEUTROPHIL # 8.2 TH/MM3 (1.8-7.7); BASOPHIL # 0.1 TH/MM3 (0-0.2); BASOPHIL % 0.6 % (0.0-2.0); EOSINOPHIL # 0.1 TH/MM3 (0-0.4); EOSINOPHIL % 0.7 % (0.0-4.0); HEMATOCRIT 33.4 % (39.0-51.0); LYMPH % 10.5 % (9.0-44.0); LYMPHOCYTE # 1.1 TH/MM3 (1.0-4.8); MEAN CELL VOLUME 94.1 FL (80.0-100.0); MEAN CORPUSCULAR HEMOGLOBIN 31.5 PG (27.0-34.0); MEAN CORPUSCULAR HGB CONC 33.5 % (32.0-36.0); MONO % 9.4 % (0.0-8.0); NEUT % 78.8 % (16.0-70.0); PLATELET COUNT 67 TH/MM3 (150-450); RED BLOOD COUNT 3.55 MIL/MM3 (4.50-5.90); RED CELL DISTRIBUTION WIDTH 13.4 % (11.6-17.2); WHITE BLOOD COUNT 10.4 TH/MM3 (4.0-11.0)
[2017-09-16 04:13] LABS: HEMO FLAGS AUTO DIFF
[2017-09-16] MEDS: RESP: ALBUTEROL 2.5 MG/IPRATROPIUM 0.5 MG NEB (SCH) INH ×4 (04:29→21:01)
[2017-09-16] MEDS: INSULIN NovoLIN REGULAR SUPPLEMENTAL SCALE SQ SCH ×3 (05:33→17:25)
[2017-09-16 05:56] LABS: CKMB 10.2 NG/ML (0.5-3.6)
[2017-09-16 07:11] LABS: PLATELET ESTIMATE SMEAR LOW (NORMAL); PLATELET MORPHOLOGY NORMAL (NORMAL); SCAN/DIFF AUTO DIFF CONFIRMED
[2017-09-16] MEDS: CHLORHEXIDINE 0.12% (ORAL KIT) 15 ML CUP MT SCH ×2 (07:54→20:00)
[2017-09-16] MEDS: DOCUSATE SODIUM 50 MG/SENNA 8.6 MG TAB PO SCH ×2 (07:56→20:18)
[2017-09-16] MEDS: MULTIVITAMIN TAB PO SCH (07:56)
[2017-09-16] MEDS: levETIRAcetam INJ 500 MG in SODIUM CHLORIDE 0.9% INJ 100 ML IV SCH ×2 (07:56→20:17)
[2017-09-16] MEDS: FAMOTIDINE 20 MG/2 ML VIAL IV PUSH SCH (07:56)
[2017-09-16] MEDS: SODIUM BICARBONATE 8.4% INJ 150 MEQ in DEXTROSE 5% IN WATE 1000ML INJ 1,000 ML IV SCH ×4 (07:57→17:25)
[2017-09-16 15:07] LABS: ALKALINE PHOSPHATASE 68 U/L (45-117); ALT (GPT) 65 U/L (12-78); ANION GAP 5 MEQ/L (5-15); AST (GOT) 161 U/L (15-37); BICARBONATE 31.4 MEQ/L (21.0-32.0); BLOOD UREA NITROGEN 5 MG/DL (7-18); CHLORIDE 101 MEQ/L (98-107); CREATINE KINASE 8827 U/L (39-308); GLOMERULAR FILTRATION RATE 89 ML/MIN (>89); MAGNESIUM 2.2 MG/DL (1.5-2.5); SODIUM (NA) 137 MEQ/L (136-145); TOTAL BILIRUBIN ADULT 0.8 MG/DL (0.2-1.0)
--- NOTE | 2017-09-16 15:34 | HHI.PR ---
Subjective Remarks Patient has been agitated at times. He pulled out his IV. He is somewhat restless on my evaluation. He admits that he ran out of his seizure medications. He does not know who prescribed them to him. Objective Vitals Vital Signs Date Time Temp Pulse Resp B/P (MAP) Pulse Ox O2 Delivery O2 Flow Rate FiO2 09/16/17 13:48 Room Air 09/16/17 12:00 80 09/16/17 11:04 Room Air 09/16/17 09:37 94 09/16/17 08:04 Room Air 09/16/17 08:00 84 09/16/17 08:00 99.3 87 20 140/84 (102) 96 09/16/17 04:31 97 09/16/17 04:00 72 09/16/17 04:00 98.6 72 16 105/61 (76) 95 09/16/17 00:00 99.4 77 16 110/59 (76) 96 09/16/17 00:00 65 09/16/17 00:00 Room Air 09/15/17 23:00 99.2 80 16 140/81 (100) 97 09/15/17 22:00 82 09/15/17 20:24 97 21 09/15/17 20:00 92 Room Air 09/15/17 20:00 102 09/15/17 18:00 79 09/15/17 16:00 88 I/O 09/15/17 09/15/17 09/15/17 09/16/17 09/16/17 09/16/17 07:00 15:00 23:00 07:00 15:00 23:00 Intake Total 2000 ml 1000 ml Output Total 1600 ml 850 ml Balance 2000 ml -1600 ml -850 ml 1000 ml Intake IV Total 2000 ml 1000 ml Output Urine Total 1600 ml 850 ml Stool Total 0 ml Result Diagram: 09/16/17 0348 09/16/17 1335 Objective Remarks GENERAL: This is a well-nourished, well-developed patient, in no apparent distress. CARDIOVASCULAR: Normal rate and regular rhythm without murmurs, gallops, or rubs. RESPIRATORY: Good respiratory efforts. Breath sounds equal and clear to auscultation bilaterally. GASTROINTESTINAL: Abdomen soft, non-tender, non-distended. Normal active bowel sounds MUSCULOSKELETAL: Extremities without cyanosis, or edema. NEURO: Alert & Oriented x4 to person, place, time, situation. Moves all ext x4 PSYCH: Somewhat restless. A/P Assessment and Plan 57-year-old male with known seizure disorder, noncompliant and current alcohol abuser. The patient presented in status epilepticus. Hypoxemic and hypercapnic respiratory failure. He is status post intubation and extubation. Recurrent seizures: Noncompliant with medications. Daily alcohol use - He has been started on Keppra and has been seizure free during this hospitalization. Patient seen by neurology who advised continuing Keppra. It does not appear that he was taking any medications on a regular basis. - Discussed with case management today to help him obtain his medications. - I discussed the need to be compliant extensively with the patient. Alcohol abuse: - Patient admits to daily use. He was advised on the need to completely stop drinking alcohol given his seizure disorder. - Start CIWA protocol Acute hypoxemic and hypercarbic respiratory failure: This was due to status epilepticus. - Resolved. Patient has been extubated and is on room air. Hypomagnesemia, life-threatening on arrival: - Resolved with replacement. Hypokalemia: - Replace and monitor. DVT Prophylaxis -- SCDs Discharge Planning Probable discharge tomorrow morning. DW with case management. His identify needs to be verified to connect him with resources and assist him with medications. Yecenia Glynn MD Sep 16, 2017 15:34
[2017-09-16 15:39] LABS: CKMB 6.8 NG/ML (0.5-3.6)
[2017-09-16] MEDS ORDERED: FLUMAZENIL 0.5 MG/5 ML VIAL IV PUSH PRN (17:45)
[2017-09-16] MEDS ORDERED: LORazepam 2 MG TAB PO PRN (17:45)
[2017-09-16] MEDS: LORazepam 1 MG TAB PO PRN (18:29)
[2017-09-17] VITALS: BP 131/86; PULSE 67; PULSE 94; RESP 16; TEMP 98.3; O2SAT 95
[2017-09-17] MEDS: LORazepam 1 MG TAB PO PRN (00:57)
[2017-09-17] MEDS: THIAMINE INJ 100 MG in SODIUM CHLORIDE 0.9% INJ 100 ML IV SCH (00:57)
[2017-09-17] MEDS: CHLORHEXIDINE GLUCONATE 2 % 1 PACK (2 CLOTHS) TOP SCH (03:09)
[2017-09-17 04:00] VITALS: BP 123/71; PULSE 58; PULSE 66; RESP 16; TEMP 98.2; O2SAT 95
[2017-09-17] MEDS: RESP: ALBUTEROL 2.5 MG/IPRATROPIUM 0.5 MG NEB (SCH) INH ×2 (05:09→10:00)
[2017-09-17 07:21] LABS: MAGNESIUM 2.2 MG/DL (1.5-2.5)
[2017-09-17] MEDS: CHLORHEXIDINE 0.12% (ORAL KIT) 15 ML CUP MT SCH (07:56)
[2017-09-17] MEDS: DOCUSATE SODIUM 50 MG/SENNA 8.6 MG TAB PO SCH (07:57)
[2017-09-17] MEDS: MULTIVITAMIN TAB PO SCH (07:57)
[2017-09-17] MEDS: FAMOTIDINE 20 MG/2 ML VIAL IV PUSH SCH (07:57)
[2017-09-17 08:00] VITALS: BP 132/81; PULSE 75; PULSE 82; RESP 18; TEMP 98.8; O2SAT 97
[2017-09-17] MEDS ORDERED: levETIRAcetam 500 MG TAB PO SCH (09:00)
[2017-09-17 10:57] VITALS: O2SAT 97
[2017-09-17] MEDS ORDERED: LEVE500 PO (11:46)
[2017-09-17] MEDS ORDERED: THIA100 PO (11:46)
[2017-09-17] MEDS ORDERED: THERTAB15 PO (11:46)
--- NOTE | 2017-09-17 11:47 | HHI.DS ---
Discharge Summary Admission Date Sep 15, 2017 at 05:50 Admitting Diagnosis Status epilepticus, rhabdomyolysis Brief History - From Admission This is a middle-aged appearing male who presents to [facility] by EMS for recurrent seizure like activity. per EMS report, he was with a female who stated he may have a ?history of seizures? He had 5 witnessed seizure-like episodes which appeared tonic-clonic in nature. On arrival to the ED, he was hypoxic and not protecting his airway on a non-rebreather mask. He was intubated in the ER. He was given ativan IV and 1gm keppra iv. CT brain was without evidence of acute changes. Patient was initially tachycardic and hypertensive. laboratory data is significant for thrombocytopenia to 67k, bicarb 12, Cr 1.7, CK 1135, AST/ALT 102/8, and an undetectable serum magnesium level. The patient is intubated, and no additional information is available from him. CBC/BMP: 09/16/17 0348 09/16/17 1335 Significant Findings Laboratory Tests Test 09/15/17 04:33 09/15/17 05:29 09/15/17 08:45 09/15/17 11:30 White Blood Count 12.4 TH/MM3 (4.0-11.0) Red Blood Count 3.84 MIL/MM3 (4.50-5.90) Hemoglobin 12.4 GM/DL (13.0-17.0) Hematocrit 38.4 % (39.0-51.0) Mean Corpuscular Volume 100.1 FL (80.0-100.0) Platelet Count 67 TH/MM3 (150-450) Neutrophils (%) (Auto) 79.3 % (16.0-70.0) Monocytes (%) (Auto) 9.5 % (0.0-8.0) Neutrophils # (Auto) 9.8 TH/MM3 (1.8-7.7) Monocytes # (Auto) 1.2 TH/MM3 (0-0.9) Platelet Estimate LOW (NORMAL) Platelet Morphology Comment ENLARGED (NORMAL) Activated Partial Thromboplast Time 23.1 SEC (24.3-30.1) Urine Turbidity HAZY (CLEAR) Urine Protein 30 mg/dL (NEG-TRACE) Urine Occult Blood MOD (NEG) Urine Bacteria OCC /hpf (NONE) Urine Mucus FEW /lpf (OCC) Creatinine 1.72 MG/DL (0.60-1.30) Random Glucose 149 MG/DL (74-106) Total Protein 9.5 GM/DL (6.4-8.2) Magnesium Level LESS THAN 0.3 MG/DL 4.2 MG/DL (1.5-2.5) Alkaline Phosphatase 124 U/L (45-117) Aspartate Amino Transf (AST/SGOT) 102 U/L (15-37) Alanine Aminotransferase (ALT/SGPT) 8 U/L (12-78) Carbon Dioxide Level 12.0 MEQ/L (21.0-32.0) Anion Gap 24 MEQ/L (5-15) Estimat Glomerular Filtration Rate 34 ML/MIN (>89) Phosphorus Level 5.4 MG/DL (2.5-4.9) Gamma Glutamyl Transpeptidase 375 U/L (15-85) Total Creatine Kinase 1135 U/L (39-308) 2476 U/L (39-308) Creatine Kinase MB 8.2 NG/ML (0.5-3.6) 12.5 NG/ML (0.5-3.6) Troponin I LESS THAN 0.02 NG/ML Salicylates Level 2.0 MG/DL (2.8-20.0) Acetaminophen Level LESS THAN 2.0 MCG/ML Phenytoin (Dilantin) Level LESS THAN 0.4 MCG/ML Valproic Acid (Depakene) Level LESS THAN 3 MCG/ML Carbamazepine (Tegretol) Level LESS THAN 0.5 MCG/ML Phenobarbital Level LESS THAN 2.1 MCG/ML Blood Gas HCO3 20 mmol/L (22-26) Blood Gas Base Excess -4.9 mmol/L (-2-2) Arterial Blood pH 7.31 (7.380-7.420) Arterial Blood Partial Pressure O2 252 mmHG (61-120) Test 09/15/17 15:43 09/15/17 22:03 09/16/17 03:48 09/16/17 13:35 Magnesium Level 2.7 MG/DL (1.5-2.5) Total Creatine Kinase 6857 U/L (39-308) 9406 U/L (39-308) 8609 U/L (39-308) 8827 U/L (39-308) Creatine Kinase MB 17.0 NG/ML (0.5-3.6) 17.2 NG/ML (0.5-3.6) 10.2 NG/ML (0.5-3.6) 6.8 NG/ML (0.5-3.6) Red Blood Count 3.55 MIL/MM3 (4.50-5.90) Hemoglobin 11.2 GM/DL (13.0-17.0) Hematocrit 33.4 % (39.0-51.0) Platelet Count 67 TH/MM3 (150-450) Neutrophils (%) (Auto) 78.8 % (16.0-70.0) Monocytes (%) (Auto) 9.4 % (0.0-8.0) Neutrophils # (Auto) 8.2 TH/MM3 (1.8-7.7) Monocytes # (Auto) 1.0 TH/MM3 (0-0.9) Platelet Estimate LOW (NORMAL) Blood Urea Nitrogen 5 MG/DL (7-18) Random Glucose 112 MG/DL (74-106) Albumin 3.0 GM/DL (3.4-5.0) Calcium Level 8.1 MG/DL (8.5-10.1) Phosphorus Level 2.4 MG/DL (2.5-4.9) Aspartate Amino Transf (AST/SGOT) 161 U/L (15-37) Potassium Level 3.0 MEQ/L (3.5-5.1) Test 09/17/17 06:33 Total Creatine Kinase 18803 U/L (39-308) Creatine Kinase MB 6.0 NG/ML (0.5-3.6) PE at Discharge GENERAL: This is a well-nourished, well-developed patient, in no apparent distress. CARDIOVASCULAR: Normal rate and regular rhythm without murmurs, gallops, or rubs. RESPIRATORY: Good respiratory efforts. Breath sounds equal and clear to auscultation bilaterally. GASTROINTESTINAL: Abdomen soft, non-tender, non-distended. Normal active bowel sounds MUSCULOSKELETAL: Extremities without cyanosis, or edema. NEURO: Alert & Oriented x4 to person, place, time, situation. Moves all ext x4 PSYCH: Somewhat restless. Pt Condition on Discharge: Good Discharge Disposition: Discharge Home Discharge Instructions DIET: Follow Instructions for: As Tolerated, No Restrictions Activities you can perform: See Additionl Instruction Other Activity Instructions: No driving, did not climb heights, no swimming, do not operate heavy machinery. Yecenia Glynn MD Sep 17, 2017 11:47
--- NOTE | 2017-09-17 11:48 | HHI.DCPOC ---
Discharge Care Plan Diagnosis: (1) Alcohol abuse (2) Altered mental status (3) Status epilepticus Goals to Promote Your Health * To prevent worsening of your condition and complications * To maintain your health at the optimal level Directions to Meet Your Goals Take your medications as prescribed Follow your dietary instruction Follow activity as directed Keep your appointments as scheduled Take your immunizations and boosters as scheduled If your symptoms worsen call your PCP, if no PCP go to Urgent Care Center or Emergency Room Smoking is Dangerous to Your Health. Avoid second hand smoke Call the 24-hour hour crisis hotline for domestic abuse at Yecenia Glynn MD Sep 17, 2017 11:48
[2017-09-17 12:00] VITALS: BP 134/78; PULSE 100; RESP 18; TEMP 98.2; O2SAT 94
[2017-09-19] MEDS ORDERED: THIAMINE HCL 100 MG TAB PO SCH (09:00)
== END 2017-09-17 14:29 | disposition home or self-care (01) | DRG 100 ==
LOC: NEPE 03:59 → EDBD 05:50 → NEDA 05:50 → N03B 07:49 → N04B 23:10
PROVIDERS: ADMIT Family Medicine; ATTEND Family Medicine
PROC: 5A1935Z Respiratory Ventilation, Less than 24 Consecutive Hours (ICD-10-PCS; principal; 2017-09-15)
PROC: 0BH17EZ Insertion of Endotracheal Airway into Trachea, Via Natural or Artificial Opening (ICD-10-PCS; 2017-09-15)
DX: G40.901 Epilepsy, unspecified, not intractable, with status epilepticus (principal); G93.41 Metabolic encephalopathy; J96.01 Acute respiratory failure with hypoxia; J96.02 Acute respiratory failure with hypercapnia; N17.9 Acute kidney failure, unspecified; M62.82 Rhabdomyolysis; D69.6 Thrombocytopenia, unspecified; G93.89 Other specified disorders of brain; E87.2 Acidosis; E83.42 Hypomagnesemia; I10 Essential (primary) hypertension; R00.0 Tachycardia, unspecified; S00.81XA Abrasion of other part of head, initial encounter; R73.9 Hyperglycemia, unspecified; F10.10 Alcohol abuse, uncomplicated; E87.6 Hypokalemia; Y90.0 Blood alcohol level of less than 20 mg/100 ml; Z91.14 Patient's other noncompliance with medication regimen
CPT/HCPCS: 31500; 36600; 43753; 51702; 70450; 70486; 71010; 72125; 80053; 80156; 80164; 80184; 80185; 80307; 81001; 82550; 82552; 82805; 82948; 82977; 83690; 83735; 83880; 84100; 84443; 84484; 85025; 85610; 85730; 87641; 93005; 94002; 94640; 94664; 95819; 96374; 96375; J0330; J1953; J2060; J2250; J3010; J3411; J3475; J7030; J7070; J7120